=== PATIENT | female | born 1965 | race Caucasian/White ===

== ENCOUNTER → 2016-11-19 | Outpatient (REF) ==
--- NOTE | 2016-11-19 14:08 | REP ---
LEFT SHOULDER, THREE VIEWS: HISTORY: Degenerative joint disease. There is no acute fracture or dislocation. There is narrowing of the acromioclavicular joint space. An osteophyte is present on the inferior aspect of the acromion. IMPRESSION: Degenerative change as described above. Signed by Gerry De Santiago MD 11/19/2016 02:11 P
== END ==
LOC: M SMT 13:29
PROVIDERS: ATTEND Internal Medicine
DX: Z02.71 Encounter for disability determination (principal)